=== PATIENT | male | born 1995 | race Caucasian/White ===

== ENCOUNTER 2017-01-07 17:46 | Emergency (ER) | payer OTHER ==
[~2017-01-07] VITALS: Ht 163.8 cm; Wt 78.5 kg
--- OUTSIDE RECORDS SUMMARY | 2017-01-07 17:54 | XMS REPORT ---
Author Author DEBBIE SOLITARIO Organization [employer] Address Unknown Phone Unavailable Care Team Providers Care Spinner Hand Name Role Phone DEBBIE SOLITARIO CP Unavailable Allergies No Known Allergies Problems Problem Type Condition ICD-9 Code Onset Dates Condition Status Problem DTAP TEST V06.1 Active Assessment Dental examination V72.2 Active Problem Need for prophylactic vaccination and inoculation, Influenza V04.81 Active Medications No Known Medications Procedures Procedure Coding System Code Date PANORAMIC FILM SEE ALSO CODE 86828 CPT-4 D0330 Dec 21, 2014 EXTRAC ERUPTED TOOTH/EXPOSED ROOT CPT-4 D7140 Dec 21, 2014 LTD ORAL EVALUATION - PROBLEM FOCUS CPT-4 D0140 Dec 21, 2014 Results No Known Results Summary Purpose [employer] Submission
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
--- NOTE | 2017-01-07 18:56 | Diagnostic Imaging Report ---
PROCEDURE: CT head without contrast. TECHNIQUE: Multiple contiguous axial images were obtained through the brain without the use of intravenous contrast. INDICATION: Trauma, head injury. COMPARISON: None. FINDINGS: The ventricles are normal in size, shape and position. There is no midline shift or mass effect. There is no hemorrhage or evidence of acute ischemia. There is no cerebral edema. There is no skull fracture. Paranasal sinuses and mastoids are clear. IMPRESSION: Negative CT head. Dictated by: Dictated on workstation # [id number]
[2017-01-07 19:16] VITALS: BP 116/75
== END 2017-01-07 19:16 | disposition home or self-care (01) ==
LOC: ER 17:51
DX: S09.90XA Unspecified injury of head, initial encounter (principal); S00.83XA Contusion of other part of head, initial encounter; F31.9 Bipolar disorder, unspecified; F90.9 Attention-deficit hyperactivity disorder, unspecified type; W20.8XXA Other cause of strike by thrown, projected or falling object, initial encounter
CPT/HCPCS: 70450; 99282